=== PATIENT | female | born 1945 | race Caucasian/White ===

== ENCOUNTER → 2021-03-24 | Day surgery (SDC) | payer OTHER, BC | END | disposition home or self-care (01) | LOC: JRADIR 11:07 | PROVIDERS: ATTEND Internal Medicine Endocrinology, Diabetes & Metabolism | PROC: 0G9K3ZX Drainage of Thyroid Gland, Percutaneous Approach, Diagnostic (ICD-10-PCS; principal; 2021-03-24) | DX: E04.1 Nontoxic single thyroid nodule (principal) | CPT/HCPCS: 10005; 36415; 76942; 86376; 86800; 88173; 88305-TC ==

== ENCOUNTER 2022-08-01 08:29 | Day surgery (SDC) | payer OTHER, BC ==
[2022-07-30 13:03] VITALS: BMI 27.4
[2022-08-01 08:40] VITALS: RESP 18
[2022-08-01 08:58] VITALS: TEMP 97.8
[2022-08-01] MEDS: TROPICAMIDE 1% OPHTH SOLN 15 ML BOTTLE ONE ×3 (09:25→09:35)
[2022-08-01] MEDS: CYCLOPENTOLATE 2% OPHTH SOLN 2 ML BOTTLE ONE ×3 (09:25→09:35)
[2022-08-01] MEDS: PHENYLEPHRINE 2.5% OPHTH SOLN 15 ML BOTTLE ONE ×3 (09:25→09:35)
[2022-08-01] MEDS: CIPROFLOXACIN 0.3% EYE DROPS 5 ML BOTTLE ONE ×3 (09:25→09:35)
[2022-08-01] MEDS ORDERED: CARBACHOL 0.01% INTRA-OCULAR 1.5 ML VIAL ONE (10:12)
[2022-08-01] MEDS ORDERED: NEO/POLYMYX B SULF/DEXAMETH OPHTHALMIC 5ML BOTTLE ONE (10:12)
[2022-08-01] MEDS ORDERED: BSS (NA/CA/MG/K) BALANCED SALT SOLUTION OPHTH SOLN 15 ML BOTTLE ONE (10:12)
[2022-08-01] MEDS ORDERED: LIDOCAINE 1% P/F 10 MG/ML VIAL ONE (10:15)
[2022-08-01] MEDS ORDERED: MIDAZOLAM HCL 2 MG/2 ML SINGLE DOSE VIAL ONE (10:29)
[2022-08-01 11:02] VITALS: BP 149/81; PULSE 78
== END 2022-08-01 11:55 | disposition home or self-care (01) ==
LOC: FASU 08:29
PROVIDERS: ATTEND Ophthalmology
PROC: 08RJ3JZ Replacement of Right Lens with Synthetic Substitute, Percutaneous Approach (ICD-10-PCS; principal; 2022-08-01 10:35)
DX: H26.8 Other specified cataract (principal)
CPT/HCPCS: 66984; V2632